=== PATIENT | male | born 1965 | race Caucasian/White ===

== ENCOUNTER → 2024-03-26 | Outpatient (CLI) | payer BC ==
--- NOTE | 2024-03-26 16:30 | XR ---
ORBIT detect for an body HISTORY: Retained metal fragments. COMPARISON: None TECHNIQUE: 3 views of the orbits were obtained. FINDINGS: There is no radiopaque foreign body. IMPRESSION: No radiopaque foreign body in the region the orbits or paranasal sinuses. [facility], , 03/26/2024 4:28 PM
== END | disposition home or self-care (01) ==
LOC: RADXRMAIN 15:51
PROVIDERS: ATTEND Orthopaedic Surgery
DX: Z18.10 Retained metal fragments, unspecified (principal)
CPT/HCPCS: 70030

== ENCOUNTER → 2024-03-27 | Outpatient (CLI) | payer BC ==
--- NOTE | 2024-03-27 13:52 | MR ---
EXAMINATION TYPE: MR lumbar spine wo con DATE OF EXAM: 03/27/2024 1:34 PM COMPARISON: None. CLINICAL INDICATION: Male, 59 years old with history of M47.812,M54.16,M54.50, Low back pain into efrain lower extremities TECHNIQUE: Multiplanar, multisequence images of the lumbar spine were acquired. IV Contrast: mL (None, if empty) FINDINGS: Cord ends at the T12-L1 level. L5-S1: No focal disc herniation or significant disc bulge. No spinal canal stenosis. Neural foramen are patent. L4-L5: There is some subligamentous disc herniation extending beyond the L4 and L5 endplates. No spin al canal stenosis. Moderate bilateral foraminal stenosis is present. Correlate with left no 5 radicul ar symptoms. Facet degenerative changes with some mild ligamentum flavum laxity is present L3-L4: Minimal subligamentous disc herniation extending beyond the L4 endplate centrally. No spinal c anal stenosis. Neural foramen are patent. L2-L3: No focal disc herniation or significant disc bulge. No spinal canal stenosis. Neural foramen are patent. L1-L2: No focal disc herniation or significant disc bulge. No spinal canal stenosis. Neural foramen are patent. T12-L1: No focal disc herniation or significant disc bulge. No spinal canal stenosis. Neural forame n are patent. IMPRESSION: 1. Small amount of subligamentous disc herniation L4-5 and to a lesser degree L3-4 without spinal can al stenosis. 2. Moderate bilateral foraminal stenosis slightly greater on the left. Correlate with left L5 radicul ar symptoms. [facility], , 03/27/2024 1:50 PM
== END | disposition home or self-care (01) ==
LOC: RADMRIMAIN 13:02
PROVIDERS: ATTEND Orthopaedic Surgery
DX: M48.061 Spinal stenosis, lumbar region without neurogenic claudication (principal); M51.16 Intervertebral disc disorders with radiculopathy, lumbar region; M47.812 Spondylosis without myelopathy or radiculopathy, cervical region
CPT/HCPCS: 72148